=== PATIENT | female | born 1940 | race Caucasian/White ===

== ENCOUNTER 2019-03-17 04:54 | Inpatient (IN) ==
[2019-03-17] MEDS ORDERED: ZOFRAN IV ONE (05:16)
--- NOTE | 2019-03-17 05:16 | PROVIDER DOCUMENTATION ---
HPI-General Adult - General Chief Complaint: Nausea/Vomiting Stated Complaint: BACK PAIN Time Seen by Provider: 03/17/19 05:16 Source: patient, family Allergies/Adverse Reactions: Patient Allergies Allergy/AdvReac Type Severity Reaction Status Date / Time PAPER TAPE Allergy RASH Uncoded 06/13/17 03:24 Home Medications: Home Medication List Medication Instructions Recorded Confirmed Last Taken Type Cetirizine HCl 10 mg PO DAILY 06/13/17 11/24/17 11/23/17 History Hydrocortisone 2.5% Cream 30 gm TOP DAILY 06/13/17 11/24/17 11/22/17 History [Anusol-Hc Cream] Sucralfate 1 gm PO BID 06/13/17 11/24/17 11/23/17 History ATORVAstatin [Lipitor] 40 mg PO DAILY 11/24/17 11/24/17 11/23/17 History Bumetanide 2 mg PO DAILY 11/24/17 11/24/17 11/23/17 History Dicyclomine [Bentyl] 10 mg PO DAILY 11/24/17 11/24/17 11/23/17 History L.acidoph,Paracasei, B.lactis 1 each PO DAILY 11/24/17 11/24/17 11/23/17 History [Probiotic] Levothyroxine [Synthroid] 50 microgm PO DAILY 11/24/17 11/24/17 11/23/17 History Multivit with Calcium,Iron,Min 1 each PO DAILY 11/24/17 11/24/17 11/23/17 History [Multiple Vitamins For Women] Pantoprazole Sodium 20 mg PO DAILY 11/24/17 11/24/17 11/23/17 History Potassium Chloride 10 meq PO DAILY 11/24/17 11/24/17 11/23/17 History Prednisone 1 mg PO DIRECTED 11/24/17 11/24/17 11/23/17 History Ranitidine [Zantac] 150 mg PO DAILY 11/24/17 11/24/17 11/23/17 History - History of Present Illness -Gen Adult Nature of Presenting Problems: Patient is a 78 year old white female with multiple myeloma and anemia, followed by Dr. Cervantes, who presents with sudden onset of nausea,vomiting, and upper back pain since 0430 today. Denies chest pain, abdominal pain. Review of Systems - Adult - REVIEW OF SYSTEMS - ADULT Constitutional: reports: no symptoms reported, fatique. denies: chills, fever Eyes: reports: no symptoms reported Ears, Nose, Mouth & Throat: reports: no symptoms reported Cardiovascular: reports: no symptoms reported. denies: chest pain, edema, irregular heart rate Respiratory: reports: no symptoms reported Gastrointestinal: reports: no symptoms reported Genitourinary: reports: no symptoms reported Musculoskeletal: reports: no symptoms reported, other (right flank pain) Integumentary: reports: no symptoms reported Neurological: reports: no symptoms reported Psychiatric: reports: no symptoms reported Endocrine: reports: no symptoms reported Hematologic/Lymphatic: reports: no symptoms reported Allergic/Immunologic: reports: no symptoms reported All Other Systems: Reviewed and Negative Past History - Adult - PAST MEDICAL HISTORY-ADULT Review of Records: reports: Old Records Reviewed, Nursing Assessment Review, Medications Reviewed, Social history reviewed & non-contributory. Major Childhood Illnesses: reports: denies history Cardiovascular: reports: hyperlipidemia Endocrine/Immune: reports: thyroid disorder - PRIOR SURGERIES/PROCEDURES Surgical/Procedure History: reports: cholecystectomy, hysterectomy, tonsillectomy, orthopedic (extremity) (total knee replacement) - IMMUNIZATION STATUS Childhood Immunizations: See Nurse Assessment Flu Vaccine: See Nurse Assessment Physical Exam-General - PHYSICAL EXAM-ADULT Initial Vital Signs Reviewed: Yes - CONSTITUTIONAL General Appearance: alert, other (appears pale with generalized weakness) - EYES Eyes: other (clear) - HEAD, EARS, NOSE, MOUTH & THROAT HENMT: moist mucous membranes - NECK Neck: supple - RESPIRATORY Respiratory: lungs clear - CARDIOVASCULAR Cardiovascular: regular rate, rhythm - GASTROINTESTINAL (ABDOMEN) Abdominal Exam: non tender, soft, no organomegaly, no pulsatile mass. negative: rebound - LYMPHATIC Lymphatic: no adenopathy - MUSCULOSKELETAL Back Exam: no CVA tenderness, other (tender over upper back) Peripheral Pulses: radial (R): 2+, radial (L): 2+ - SKIN Integumentary: pallor - NEUROLOGIC Neurologic: other (nonfocal, uncooperative to exam) - PSYCHIATRIC Psych/Mental Status: anxious, other (cognitive dysfunction) Progress - PLAN OF CARE/RESULTS Progress/Plan/Lab Results: Vital Signs - 8 hr 03/17/19 05:00 Temperature 98.2 F Pulse Rate 77 Respiratory Rate 20 Blood Pressure 142/117 O2 Sat by Pulse Oximetry 97 Result Diagrams: 03/17/19 05:39 03/17/19 05:39 - CONSULTS/PCP/HOSPITALIST Notification #1 *Consult/PCP/Hospitalist*: DR Cheryl FLORES Time Discussed: 08:40 Consult Disposition: Admit - CHANGE OF SHIFT REPORT (ED Provider) 1 Report Given and Care Transferred to:: Dr. Gutierrez Time of Transfer: 07:00 Items Pending: Labs Departure - Departure Date of Disposition Decision: 03/17/19 Time of Disposition Decision: 09:06 DIAGNOSIS: UTI (urinary tract infection), Leukocytosis, Acute flank pain, Hx of multiple myeloma Disposition: ADMITTED INPATIENT 09 Certified Medical Emergency: Emergent Condition: Stable Referrals and Follow-Ups: Jignesh Flores MD [Primary Care Provider] - - Critical Care Note This patient required my direct & personal management of CC.: Yes Attestation - Physician/ SASHA Attestation The physician spent face to face time with patient:: Yes Advanced Practice Provider documentation review:: Supervising physician onsite and consulted in the evaluation and care of this patient. The physician did have a face to face encounter with the patient.
[2019-03-17] MEDS ORDERED: NS 500 ML IV ONE (05:17)
[2019-03-17 06:52] LABS: WBC 14.79 X1000 (4.8-10.8)
[2019-03-17 06:53] LABS: BASO% 0.1 % (0.0-0.8); EOS% 0.9 % (0.0-10.0); HEMATOCRIT 39.4 % (37.0-47.0); LYMPH# 1.93 X1000 (1.2-3.4); MCH 28.8 PG (27-31); MCV 87.4 FL (81-99); MONO# 1.11 X1000 (0.11-0.59); MONO% 7.5 % (1.7-9.3); NEUT# 11.55 X1000 (1.4-6.5); NEUT% 78.2 % (42.2-75.2); PLT 253 X1000 (130-400); RBC 4.51 XMIL (4.2-5.4); RDW 13.4 % (11.5-14.5)
[2019-03-17 06:54] LABS: BASO# 0.02 X1000 (0.0-0.2); EOS# 0.14 X1000 (0.0-0.7); IMM GRAN# 0.04 X1000 (0.0-0.04); IMM GRAN% 0.3 % (0.0-0.5)
[2019-03-17 07:05] LABS: URINE SOURCE CLEAN CATCH
[2019-03-17 07:13] LABS: URINE BACTERIA 3+ /HFP; URINE CAST NONE SEEN /LPF; URINE CRYSTAL NONE SEEN /HPF; URINE EPITHELIAL CELLS <10 /HPF (<10); URINE RBC <10 /HPF (<10); URINE SMALL ROUND CELLS RENAL PRESENT; URINE YEAST NONE SEEN /HPF
[2019-03-17 07:14] LABS: BILIRUBIN URINE NEGATIVE (NEGATIVE); BLOOD URINE NEGATIVE (NEGATIVE); CLARITY SLIGHTLY CLOUDY (CLEAR); COLOR YELLOW; GLUCOSE URINE NEGATIVE (NEGATIVE); KETONE URINE NEGATIVE (NEGATIVE); LEUKOCYTES URINE 2+ (NEGATIVE); NITRITE URINE NEGATIVE (NEGATIVE); PROTEIN URINE TRACE mg/dL (NEGATIVE); UROBILINOGEN URINE NORMAL
--- NOTE | 2019-03-17 07:50 | Diag Imaging Result Doc PS360 ---
EXAM: CHEST-PORTABLE HISTORY: upper back pain TECHNIQUE: Chest single view COMPARISON: 10/10/2011 FINDINGS: The lungs are well expanded. The heart is not enlarged. The vessels are not distended. There are no infiltrates. No effusion identified. IMPRESSION: Negative exam. Electronically signed by Madi Hood 03/17/2019 7:47 AM
--- NOTE | 2019-03-17 07:53 | Diag Imaging Result Doc PS360 ---
EXAM: THORACIC SPINE HISTORY: back pain TECHNIQUE: AP and lateral, four views COMPARISON: None. FINDINGS: No compressed vertebra. No subluxation. Small degenerative bone spurs throughout the thoracic spine. Minimal superior endplate compression fracture to the L1 vertebra. This was not present on the lateral chest x-ray from 10/10/2011. IMPRESSION: 1.Mild degenerative changes 2.Minimal superior endplate compression fracture to the L1 vertebra not present on 10/10/2011 Electronically signed by Madi Hood 03/17/2019 7:51 AM
[2019-03-17] MEDS ORDERED: ROCEPHIN 1 GM in NS 50 ML IV ONE (08:15)
[2019-03-17 08:30] LABS: AGAP 15; ALBUMIN 4.8 g/dL (3.5-5.0); ALKALINE PHOSPHATASE 89 U/L (32-104); BUN 20 mg/dL (8-22); CALCIUM 9.5 mg/dL (8.8-10.2); CHLORIDE 101 mmol/L (98-107); COSMO 281; CREATININE 0.6 mg/dL (0.5-0.9); ESTIMATED GFR > 60; GLUCOSE 118 mg/dL (70-104); GOT 71 U/L (10-30); GPT 41 U/L (10-36); POTASSIUM 4.4 mmol/L (3.5-5.1); SODIUM 139 mmol/L (136-145); TCO2 23 mmol/L (25-35); TOTAL PROTEIN 8.2 g/dL (6.3-8.3)
[2019-03-17] MEDS ORDERED: NS 1,000 ML IV ONE (10:55)
[2019-03-17] MEDS ORDERED: ZOFRAN IV PRN (10:55)
[2019-03-17] MEDS ORDERED: TORADOL IV PRN (10:55)
[2019-03-17] MEDS ORDERED: TYLENOL PO PRN (10:55)
[2019-03-17 20:22] VITALS: BP 135/79
--- NOTE | 2019-04-21 18:35 | DISCHARGE SUMMARY ---
ADMISSION DATE: 03/17/2019 DISCHARGE DATE: 03/17/2019 HISTORY OF PRESENT ILLNESS: The patient was admitted with a presumptive urinary tract infection and some right flank pain. She had history of back pain and multiple myeloma. HOSPITAL COURSE: Her vital signs were stable. Blood pressure was fine. After she settled into the floor, not really having any symptoms of a urinary tract infection. She had a chest x-ray that was unrevealing. She had a minimal superior endplate compression fracture to L1, not present previously, and may be the source of her pain. Her urine grew out Escherichia coli. She was discharged on Levaquin. Will follow her up as an outpatient. cc: Jignesh Mehta MD
--- NOTE | 2019-04-21 18:41 | HISTORY AND PHYSICAL ---
HISTORY OF PRESENT ILLNESS: She presented to the emergency room on 03/17/2019 complaining of nausea, vomiting and back pain. She is 78 years old and has a history of multiple myeloma and anemia followed by Dr. Cervantes. She presented to the emergency room with sudden onset of nausea, vomiting and upper back pain since 4:30 the day of admission in the a.m. She denies chest pain and abdominal pain. She was seen and had a chest x-ray done that was well expanded. No enlarged heart. Vessels not distended. No infiltrates. No effusions. T-spine no compressed vertebrae, no subluxation. Small degenerative bone spurs throughout the T-spine. Minimal superior endplate compression fracture to L1. This was not present on the lateral chest x-ray from 10/10/2011. Her laboratory data done in the ER showed CBC with a white count of 14,790, hematocrit 39.4, platelet count 253,000. Her chemistries showed sodium 139, potassium 4.4, chloride 101, C02 23, BUN 20, creatinine 0.6, GFR greater than 60, glucose 118, AST 71, ALT slightly elevated at 41, total bilirubin 0.80, calcium 9.5. Troponin was less than 0.01. Total protein 8.2, albumin 4.8, globulin 3, plasma lactate 1.9. Urinalysis slightly cloudy, specific gravity 1.020, 2+ white cells, urine count 10-20 white cells, less than 10 epithelial cells, 3+ bacteria cells. She was cultured both blood and urine background. She is taking Zyrtec 10 p.r.n., sucralfate 1 gram p.o. b.i.d., Lipitor 40 daily, Bumex 2 daily, Bentyl 10 daily, levothyroxine 50 mcg daily, multivitamins, Protonix 20 daily, potassium 10, prednisone 1 mg daily p.r.n. as directed and Zantac So after evaluating her x-rays and the lab, they diagnosed her with a UTI with leukocytosis, acute flank pain and history of multiple myeloma. PAST MEDICAL HISTORY: She has had hyperlipidemia, cholecystectomy, hysterectomy, tonsillectomy, several orthopedic surgeries and total knee replacement. REVIEW OF SYSTEMS: Constitutional: She does not have any chills or fever, no fatigue. Eyes: No change in visual acuity. ENT: No sinusitis, rhinitis or otitis. Cardiovascular: Denies chest pain, edema, irregular heart rate. Respiratory: No shortness of breath, HURLEY, wheezing, cough, hemoptysis. GI: No nausea, vomiting, diarrhea, constipation, belly pain, melena or hematochezia. : No significant symptoms. She has some lower back pain but no true dysuria. Musculoskeletal: She has some right flak pain. Skin: No symptoms reported. Neurological: No focal neurological deficits are identified. No migraines. No seizure activity. No syncope. Psychiatric: Negative. Endo: Negative. Denies any significant bleeding. ALLERGIES: No significant allergies. PHYSICAL EXAMINATION: VITAL SIGNS: Temperature 98.2, pulse 77, respirations 20, blood pressure 142/117. HEENT: Head is normocephalic. PERRL. EOMI. Sclerae clear. Nares patent. Oropharynx negative. NECK: Supple. Bounding carotids. No JVD. CHEST: Bilaterally clear breath sounds. HEART: Regular rhythm and rate. ABDOMEN: Nontender. No organomegaly. No pulsatile masses. EXTREMITIES: Negative for clubbing, cyanosis or edema. No CVA tenderness. She has tenderness over her upper back. Pulses intact. SKIN: She is pale. NEUROLOGICAL: Nonfocal. She is a little bit anxious otherwise negative. ASSESSMENT AND PLAN: She is admitted with a urinary tract infection, leukocytosis, flank pain and history of multiple myeloma. Her total protein is 8.2 and albumin 4.8 in reference to her issues. She is admitted, placed on antibiotics and will investigate her complaints. cc: Jignesh Mehta MD
== END 2019-03-17 23:34 | disposition home or self-care (01) | DRG 690 ==
LOC: P.ED 04:54 → P.MEDSURG 10:40
PROVIDERS: ADMIT Internal Medicine; ATTEND Internal Medicine
CPT/HCPCS: 71010; 71045; 72072; 80053; 81001; 83605; 84484; 85025; 86850; 86870; 86900; 86901; 87040; 87077; 87088; 87186; 93005; 96365; 96375; 99285; J0696; J2405; J7030

== ENCOUNTER 2019-06-24 07:41 | Inpatient (IN) ==
[2019-06-24] MEDS ORDERED: ZOFRAN IV ONE (08:14)
[2019-06-24] MEDS ORDERED: NS 1,000 ML IV ONE (08:14)
[2019-06-24 09:01] LABS: BASO# 0.01 X1000 (0.0-0.2); BASO% 0.1 % (0.0-0.8); EOS# 0.02 X1000 (0.0-0.7); EOS% 0.2 % (0.0-10.0); HEMATOCRIT 32.1 % (37.0-47.0); HEMOGLOBIN 9.5 g/dL (12.0-16.0); IMM GRAN# 0.03 X1000 (0.0-0.04); IMM GRAN% 0.3 % (0.0-0.5); LYMPH# 1.21 X1000 (1.2-3.4); LYMPH% 11.6 % (20.5-51.1); MCH 25.6 PG (27-31); MCHC 29.6 g/dL (33-37); MCV 86.5 FL (81-99); MONO# 0.96 X1000 (0.11-0.59); MONO% 9.2 % (1.7-9.3); MPV 10.1 FL (7.4-10.4); NEUT# 8.17 X1000 (1.4-6.5); NEUT% 78.6 % (42.2-75.2); PLT 516 X1000 (130-400); RBC 3.71 XMIL (4.2-5.4); RDW 15.4 % (11.5-14.5)
[2019-06-24 09:13] LABS: CALCIUM 10.5 mg/dL (8.8-10.2); CREATININE 1.2 mg/dL (0.5-0.9); MAGNESIUM 2.5 mg/dL (1.5-2.7); POTASSIUM 3.6 mmol/L (3.5-5.1); TOTAL BILIRUBIN 0.7 mg/dL (0.20-1.00); TOTAL PROTEIN 8.9 g/dL (6.3-8.3)
--- NOTE | 2019-06-24 10:54 | Diag Imaging Result Doc PS360 ---
EXAM: CT ABD/PELVIS W/IV CONT ONLY - 06/24/2019 HISTORY: epigastric pain with NV. TECHNIQUE: CT abdomen/pelvis with intravenous contrast only. No oral contrast administered per request of the referring provider. COMPARISON: 03/18/2018 FINDINGS: There is an apparent 1.8 cm new solid nodule at the medial margin of the right lobe of liver. The adrenal gland. There are scattered small hepatic cysts. There are two new solid nodular lesions in the spleen which measure 4.2 cm and 4 cm, respectively. The possibility that the solid hepatic and splenic nodules representing metastases cannot be excluded. There are no other acute abnormalities of the adrenal glands or pancreas identified. The gallbladder surgically absent. The bilateral kidneys enhance homogeneously. There is no hydronephrosis. There is dilatation of proximal small bowel and stomach with retained fluid. The more distal small bowel is nondistended. This is suspicious for small bowel obstruction. There is small bowel caliber change at the lower abdomen at the midline, with air appears to be an intussusception. There is a possible smooth margined mass lesion at this location which involves the small bowel, but this is difficult to distinguish from retained contents in small bowel lumen. This measures approximately 4.4 x 4.5 cm in axial dimensions. There is a small fat-containing midline upper anterior abdominal wall hernia. There is no free air, free fluid, or abscess identified. IMPRESSION: Small solid hepatic nodule and two larger solid splenic nodules. Metastases cannot be excluded. Small bowel obstruction from intussusception at the midline lower abdomen. Possible smooth margined soft tissue mass at the intussusception location. This report was discussed with Dr. Santillan on 06/24/2019 at 10:52 AM and was readback. This exam was performed using automated exposure control, adjustment of mA or kV according to patient size, and/or use of iterative reconstruction technique. Electronically signed by Omid Orta 06/24/2019 10:52 AM
[2019-06-24] MEDS: NS 1,000 ML IV SCH ×2 (11:32→23:16)
--- NOTE | 2019-06-24 13:14 | PROVIDER DOCUMENTATION ---
This chart was entered by Megan Murphy Scribe, acting as scribe for Nuzhat Santillan DO. HPI-Abdominal Pain/GI Problem - General Chief Complaint: Vomiting Stated Complaint: vomiting Time Seen by Provider: 06/24/19 07:58 Source: patient, family Allergies/Adverse Reactions: Patient Allergies Allergy/AdvReac Type Severity Reaction Status Date / Time PAPER TAPE Allergy RASH Uncoded 06/13/17 03:24 - History of Present Illness-ABD Nature of Presenting Problems: 78 yof presents to [facility] ed with c/o n/v with abdominal pain. pt sts was seen last night in ed and felt better when she left to go home. pt sts pain and n/v returned early this am. pt is current cancer (multiple myeloma) and is undergoing through chemo injections regularly. Abdominal Pain Onset Location: reports: generalized abdomen Pain Radiation: reports: no radiation Quality of Pain: reports: cramping Severity in ED: reports: moderate Onset/Duration: reports: this morning Timing: reports: still present, intermittent Activities at Onset: reports: light activity Exposure to sick contacts?: Yes Modifying Factors: improves with: nothing Associated Symptoms: reports: fatigue, nausea, vomiting. denies: back/neck pain, chest pain, diaphoresis, fever/chills, headaches Last BM: 2 days ago Dark Stools Present?: reports: none noticed Rectal Bleeding: reports: none # of Diarrhea Episodes: 0 Rectal Pain: reports: none # of Vomiting Episodes: 4 Emesis Description: reports: other (anything PO) Bruising or Bleeding Gums?: No Similar Symptoms Previously?: Yes Recently seen or treated by another doctor?: Yes (seen in ed last night) Review of Systems - Adult - REVIEW OF SYSTEMS - ADULT Constitutional: reports: see HPI, fatique. denies: chills, fever Eyes: reports: no symptoms reported Ears, Nose, Mouth & Throat: reports: no symptoms reported Cardiovascular: denies: chest pain, palpitations, syncope Respiratory: denies: cough, shortness of breath, wheezing Gastrointestinal: reports: see HPI, abdominal pain, nausea, poor appetite, vomiting. denies: diarrhea Genitourinary: reports: no symptoms reported Musculoskeletal: denies: back pain, neck pain Integumentary: reports: no symptoms reported Neurological: denies: dizziness/vertigo, headache/migraines Psychiatric: reports: no symptoms reported Endocrine: reports: no symptoms reported Hematologic/Lymphatic: reports: no symptoms reported Allergic/Immunologic: reports: no symptoms reported All Other Systems: Reviewed and Negative Past History - Adult - PAST MEDICAL HISTORY-ADULT Review of Records: reports: Old Records Reviewed, Nursing Assessment Review, Medications Reviewed, Social history reviewed & non-contributory. Major Childhood Illnesses: reports: denies history Cardiovascular: reports: hyperlipidemia Respiratory: reports: denies history Gastrointestinal: reports: GERD Obstetrical/Gynecological: reports: denies history Genitourinary: reports: denies history Musculoskeletal: reports: cancer (bone), chronic pain Hand Dominance: Right Handed Neurological: reports: denies history Psychiatric: reports: denies history Endocrine/Immune: reports: immunosuppression, thyroid disorder Other Conditions: reports: cataract/glaucoma - PRIOR SURGERIES/PROCEDURES Surgical/Procedure History: reports: appendectomy, cholecystectomy, hysterectomy , tonsillectomy, orthopedic (extremity) (total knee replacement), joint replacement - IMMUNIZATION STATUS Childhood Immunizations: See Nurse Assessment Flu Vaccine: See Nurse Assessment - FAMILY HISTORY Family History: reviewed, not pertinent - SOCIAL HISTORY Smoking: denies Substance Use: denies Alcohol Use Frequency: never Living Situation: family Physical Exam-General - PHYSICAL EXAM-ADULT Initial Vital Signs Reviewed: Yes - CONSTITUTIONAL General Appearance: appears well, alert, no apparent distress, obese - EYES Eyes: PERRL/EOMI, pink conjunctivae - HEAD, EARS, NOSE, MOUTH & THROAT HENMT: moist mucous membranes - NECK Neck: non-tender, full range of motion, supple, normal inspection - RESPIRATORY Respiratory: chest non-tender, lungs clear, normal breath sounds - CARDIOVASCULAR Cardiovascular: normal peripheral pulses, tachycardia (112) - GASTROINTESTINAL (ABDOMEN) Abdominal Exam: abnormal bowel sounds (hyperactive), distended, tenderness (epigastrium.). negative: rebound - LYMPHATIC Lymphatic: no adenopathy - MUSCULOSKELETAL Back Exam: normal inspection Extremity: normal range of motion, non-tender, normal inspection, normal capillary refill, pelvis stable - SKIN Integumentary: normal turgor, warm/dry, pallor - NEUROLOGIC Neurologic: grossly normal - PSYCHIATRIC Psych/Mental Status: normal mood/affect, normal thought content, normal thought process, oriented x 3 Progress - PLAN OF CARE/RESULTS Progress/Plan/Lab Results: Vital Signs - 8 hr 06/24/19 07:47 06/24/19 08:09 Temperature 98 F Pulse Rate 112 H 101 H Respiratory Rate 18 13 Blood Pressure 95/58 110/70 O2 Sat by Pulse Oximetry 98 96 Laboratory Results - last 24 hr 06/24/19 06/24/19 08:24 08:24 WBC 10.40 RBC 3.71 L Hgb 9.5 L Hct 32.1 L MCV 86.5 MCH 25.6 L MCHC 29.6 L RDW Std Deviation 15.4 H Plt Count 516 H MPV 10.1 Immature Gran % (Auto) 0.3 Neut % (Auto) 78.6 H Lymph % (Auto) 11.6 L Coal % (Auto) 9.2 Eos % (Auto) 0.2 Baso % (Auto) 0.1 Immature Gran # (Auto) 0.03 Neut # (Auto) 8.17 H Lymph # (Auto) 1.21 Coal # (Auto) 0.96 H Eos # (Auto) 0.02 Baso # (Auto) 0.01 Sodium 141 Potassium 3.6 Chloride 91 L Carbon Dioxide 31 Anion Gap 19 BUN 19 D Creatinine 1.2 H Estimated GFR/1.73 m2 43 BUN/Creatinine Ratio 16 Glucose 133 H Calculated Osmolality 285 Calcium 10.5 H Magnesium 2.5 Total Bilirubin 0.70 AST 21 ALT 17 Alkaline Phosphatase 96 Total Protein 8.9 H Albumin 5.0 Globulin 4.0 Albumin/Globulin Ratio 1.0 Lipase 29 Orders Category Date Time Status NG/OG/Feeding Tube Insertion ORDERED Care 06/24/19 11:[address] ABD/PELVIS W/IV CONT ONLY [CT] Stat Exams 06/24/19 10:10 Completed CBC WITH ELECTRONIC DIFF [HEME] Stat Lab 06/24/19 08:24 Completed COMPREHENSIVE METABOLIC PANEL [CHEM] Stat Lab 06/24/19 08:24 Completed LIPASE [CHEM] Stat Lab 06/24/19 08:24 Completed MAGNESIUM [CHEM] Stat Lab 06/24/19 08:24 Completed 0.9% Sodium Chloride Inj [Ns] 1,000 ml Med 06/24/19 11:15 Active IV 100 mls/hr 0.9% Sodium Chloride Inj [Ns] 1,000 ml Med 06/24/19 08:14 Discontinued IV 999 mls/hr Ondansetron [Zofran] Med 06/24/19 08:14 Discontinued 4 mg IV NOW ONE Clinically stable under my care. Considerations include but not limited to: SBO, intussusception, CA recurrence. She was found to have intussusception on CT. Case discussed with Dr Villegas who plans operative intervention. She was transferred to via ambulance and admitted to the hospitalist service. NG placed in the ED. Result Diagrams: 06/25/19 06:22 06/25/19 06:22 - REASSESSMENT Reassessment #1 Time Reassessed: 09:05 (family at bedside) Status: unchanged Reassessment #2 Time Reassessed: 11:36 (pt is resting in bed in no distress) Status: unchanged - CT/MRI 1 CT Study: Abdomen, Pelvis Impression: See EMR Report (EXAM: CT ABD/PELVIS W/IV CONT ONLY - 06/24/2019 HISTORY: epigastric pain with NV. TECHNIQUE: CT abdomen/pelvis with intravenous contrast only. No oral contrast administered per request of the referring provider. COMPARISON: 03/18/2018 FINDINGS: There is an apparent 1.8 cm new solid nodule at the medial margin of the right lobe of liver. The adrenal gland. There are scattered small hepatic cysts. There are two new solid nodular lesions in the spleen which measure 4.2 cm and 4 cm, respectively. The possibility that the solid hepatic and splenic nodules representing metastases cannot be excluded. There are no other acute abnormalities of the adrenal glands or pancreas identified. The gallbladder surgically absent. The bilateral kidneys enhance homogeneously. There is no hydronephrosis. There is dilatation of proximal small bowel and stomach with retained fluid. The more distal small bowel is nondistended. This is suspicious for small bowel obstruction. There is small bowel caliber change at the lower abdomen at the midline, with air appears to be an intussusception. There is a possible smooth margined mass lesion at this location which involves the small bowel, but this is difficult to distinguish from retained contents in small bowel lumen. This measures approximately 4.4 x 4.5 cm in axial dimensions. There is a small fat- containing midline upper anterior abdominal wall hernia. There is no free air, free fluid, or abscess identified. IMPRESSION: Small solid hepatic nodule and two larger solid splenic nodules. Metastases cannot be excluded. Small bowel obstruction from intussusception at the midline lower abdomen. Possible smooth margined soft tissue mass at the intussusception location. This report was discussed with Dr. Santillan on 06/24/2019 at 10:52 AM and was readback. This exam was performed using automated exposure control, adjustment of mA or kV according to patient size, and/or use of iterative reconstruction technique. Electronically signed by Omid Orta 06/24/2019 10:52 AM 06/24/19 1052 Interpreting Physician: Omid Orta MD Dictated Date/Time: 06/24/19 1034 cc: Nuzhat Santillan DO; Jignesh Mehta MD) - CONSULTS/PCP/HOSPITALIST Notification #1 *Consult/PCP/Hospitalist*: sx dr villegas Reason/Comments: phone consult #2 Consult: hospitalist dr guillen Reason/Comments: phone consult Departure - Departure Date of Disposition Decision: 06/24/19 Time of Disposition Decision: 11:30 DIAGNOSIS: Intussusception intestine Disposition: ADMITTED INPATIENT 09 Certified Medical Emergency: Emergent Condition: Fair - Critical Care Note This patient required my direct & personal management of CC.: Yes Total Time (mins): 42 Critical Care Statement: This patient required my direct personal management to treat or rule out processes, the absence of which, could potentiallly result in sudden, clinically significant life or limb threatening deterioration. Attestation - Physician/ SASHA Attestation Patient care was provided by Advanced Practice Provider:: No The physician spent face to face time with patient:: Yes Advanced Practice Provider documentation review:: Supervising physician onsite and consulted in the evaluation and care of this patient. The physician did have a face to face encounter with the patient. This chart was documented by the indicated scribe, (Megan Murphy Scribe) and accurately reflects the services I performed and decisions made by me, Nuzhat Santillan DO, as attested by the provider's signature.
[2019-06-24] MEDS ORDERED: KEFZOL 2 GM/D5W 2 GM/50 ML IVPB IV ONE (14:27)
--- NOTE | 2019-06-24 14:28 | GENERAL SURGERY CONSULTATION ---
DATE: 06/24/2019 REASON FOR CONSULTATION: Intussusception. HISTORY OF PRESENT ILLNESS: This is an 78-year-old female, who has been having some epigastric pain for about 2 weeks. It is mostly constant. It has been relieved mildly with eating. However, yesterday she developed new intractable nausea and vomiting and her epigastric pain became worse. Currently, however, it is only a 3/10. It is 10/10 at its worst, and it is not worse with movement. There are no relieving factors. Her last bowel movement was 2 days ago. She denies fever, chills, or other systemic complaints. PAST MEDICAL HISTORY: IBS, multiple myeloma. PAST SURGICAL HISTORY: Bladder tack, laparoscopic cholecystectomy, total abdominal hysterectomy, knee replacement. HOME MEDICATIONS: Synthroid, gabapentin, furosemide, pantoprazole, multivitamin, valacyclovir, probiotic, Klor-Con, ranitidine, cetirizine, atorvastatin, MiraLAX. ALLERGIES: Aspirin and codeine. The codeine in pain medicine makes her have nausea and vomiting. However, she can tolerate morphine. SOCIAL HISTORY: Negative tobacco, alcohol or illicit drug use. FAMILY HISTORY: Positive for scleroderma and Raynaud syndrome. REVIEW OF SYSTEMS: Ten systems reviewed and negative, except as noted above. PHYSICAL EXAM: Vital Signs: She is afebrile. Vital signs are stable. General: She is awake, alert, oriented x3, in no acute distress. HEENT: Normocephalic, atraumatic. Extraocular muscles intact. Pupils equal, round, reactive to light. Sclerae anicteric. Mucous membranes are dry. The NG tube is in place with gastric contents. Neck: Supple. No thyromegaly. CV: Regular rate and rhythm. Respiratory: Bilateral breath sounds. No work of breathing. Gastrointestinal: Soft, nondistended no organomegaly or mass. She is moderately tender in the upper abdomen. No rebound or guarding. No hernias. Extremities: No clubbing, cyanosis or edema. Skin: Warm and dry. No rash. Musculoskeletal: Moves all extremities equally and well. LABORATORY: Reviewed. She does have a leukocytosis. IMAGING: CT of abdomen and pelvis was reviewed and shows small bowel obstruction with intussusception. ASSESSMENT AND PLAN: An 78-year-old female with small bowel obstruction due to intussusception. She will be getting fluids, and we will plan exploratory laparotomy today with possible bowel resection versus reduction of the intussusception. I discussed the risks and benefits with her, including bleeding, infection, incisional hernia, anastomotic leak, injury to surrounding organs, perioperative cardiopulmonary complications and other imponderables. She understands and agrees to proceed. cc: Karl Villegas MD
[2019-06-24] MEDS ORDERED: ALBUMIN 25% ONE (14:30)
[2019-06-24] MEDS ORDERED: ROBINUL ONE (14:41)
[2019-06-24] MEDS ORDERED: AMIDATE ONE (14:41)
[2019-06-24] MEDS ORDERED: XYLOCAINE-MPF 2% ONE (14:41)
[2019-06-24] MEDS ORDERED: QUELICIN (DOSE) ONE (14:46)
--- NOTE | 2019-06-24 15:06 | EKG Report ---
Test Performed on : 06/24/2019 3:00:50 PM Test Reason : preop Blood Pressure : / mmHG Vent. Rate : 095 BPM Atrial Rate : 095 BPM P-R Int : 154 ms QRS Dur : 090 ms QT Int : 388 ms P-R-T Axes : 050 -11 083 degrees QTc Int : 487 ms Normal sinus rhythm. Cannot rule out Anterior infarct , age undetermined Abnormal ECG When compared with ECG of 23-JUN-2019 19:45, (Unconfirmed) Nonspecific T wave abnormality, worse in Lateral leads Confirmed by Steve Healy MD ([id number]) on 06/25/2019 7:00:22 AM
[2019-06-24] MEDS ORDERED: KEFZOL 2 GM/D5W 2 GM/50 ML IVPB ONE (15:59)
[2019-06-24] MEDS ORDERED: KETAMINE ONE (16:01)
[2019-06-24] MEDS ORDERED: OFIRMEV 1000 MG/ISOTONIC SOLN 1,000 MG/100 ML BOTTLE ONE (16:18)
[2019-06-24] MEDS ORDERED: BRIDION ONE (16:24)
[2019-06-24] MEDS ORDERED: ZOFRAN ONE (16:34)
[2019-06-24] MEDS ORDERED: ZEMURON ONE (16:37)
[2019-06-24] MEDS ORDERED: DILAUDID ONE (16:53)
[2019-06-24] MEDS ORDERED: NS 1,000 ML ONE (18:02)
[2019-06-24 18:03] LABS: URINE SOURCE CATH
[2019-06-24 18:07] LABS: BILIRUBIN URINE NEGATIVE (NEGATIVE); BLOOD URINE NEGATIVE (NEGATIVE); COLOR YELLOW; GLUCOSE URINE NEGATIVE (NEGATIVE); KETONE URINE NEGATIVE (NEGATIVE); LEUKOCYTES URINE MODERATE (NEGATIVE); NITRITE URINE POSITIVE (NEGATIVE); PH URINE 8.5; PROTEIN URINE 100 mg/dL (NEGATIVE); SP GRAVITY URINE 1.024; TURBIDITY URINE HAZY (CLEAR); UROBILINOGEN URINE NORMAL (NORMAL)
[2019-06-24 18:09] LABS: UR EPITHELIAL CELLS <10 /HPF (<10); URINE BACTERIA 2+ /HPF; URINE RBC <10 /HPF (<10); URINE WBC TNTC /HPF (<10)
--- NOTE | 2019-06-24 20:44 | HISTORY AND PHYSICAL ---
ADDENDUM: The patient was seen and examined by me [id number]. All the laboratory, vital signs, and images were reviewed. This patient is an 78-year-old female, and she has a past medical history of multiple myeloma, hyperlipidemia, cholecystectomy, several orthopedic surgeries. She has been followed up by Dr. Cervantes. Apparently as per the patient, she has been having abdominal pain for a few days, but yesterday this pain got worse, and she actually went to the emergency department. She was discharged after evaluation because the pain got better. She came back today with worsening pain, and CT scan of the abdomen showed a small solid hepatic nodule and 2 large solid splenic nodules. Metastases cannot be excluded. Also showed small bowel obstruction from intussusception at the midline lower abdomen. There is a possibility of smooth margined soft tissue mass at the intussusception location. An NG tube has been placed, and Surgery Department evaluated this patient. Hopefully, they will go for surgery today to repair this issue. She has been placed on IV fluids. This patient seems to be a little bit dehydrated, and she is having also acute kidney injury. We will monitor this patient closely. I agree with the rest of the nurse practitioner's assessment and plan. cc: Wily Granados MD
[2019-06-24] MEDS: OFIRMEV 1000 MG/ISOTONIC SOLN 1,000 MG/100 ML BOTTLE IV SCH (23:15)
[2019-06-24] MEDS: PERIDEX MT SCH (23:16)
--- NOTE | 2019-06-25 00:16 | OPERATIVE NOTE ---
PROCEDURE DATE: 06/24/2019 PREOPERATIVE DIAGNOSIS: Intussusception and small-bowel obstruction. POSTOPERATIVE DIAGNOSIS: Intussusception and small-bowel obstruction. PROCEDURE: Exploratory laparotomy with small-bowel resection. SURGEON: Karl Villegas MD. ANESTHESIA: General. ESTIMATED BLOOD LOSS: 50 mL. COMPLICATIONS: None apparent. SPECIMENS: Portion of small bowel. FINDINGS: She had an intussusception due to a tumor as the pathologic lead point. This was in the proximal small bowel approximately 20 to 30 cm from the ligament of Treitz. There were a few enlarged lymph nodes in the mesentery underneath this tumor. TECHNIQUE: She was brought to the operating room and placed supine on the table. General anesthesia was induced. She was prepped and draped in usual sterile fashion. A periumbilical midline incision was made with a 10 blade, and carried down through the subcutaneous tissue with cautery down to the fascia. The fascia was incised with cautery. The peritoneum was grasped between hemostats and incised with scissors, and I entered the peritoneal cavity safely. I lengthened the peritoneal and fascial incision with cautery, being careful to protect the underlying bowel. There were a few adhesions of omentum to the anterior abdominal wall. These were taken down with cautery. I then found the cecum and terminal ileum, and began running it from distal to proximal into the proximal small-bowel. I found the intussusception. I was able to reduce it easily by milking it out, and it revealed a walnut sized near obstructing mass that was almost certainly malignant. I created a window on either side of this mass through the mesentery, at least 5 cm proximal and distal, and then transected the small-bowel with a linear NATHAN stapler proximally and distally. I then used a V-shaped wedge resection of the underlying mesentery, taking multiple lymph nodes with it. This was done with cautery, clamping the vessels, and ligating the vessels with 3-0 or 2-0 silk. Once the specimen was removed and the mesentery was divided, I then placed a Carmalt clamp on the proximal obstructed bowel. I incised the corners of the proximal and distal ends, lining them up in a [id number] fashion, and passed another linear stapler down each limb of the bowel, creating a [id number] antimesenteric anastomosis. This was in an antiperistaltic fashion. I closed the common enterotomy with a running 2-0 Vicryl in 2 directions. I closed the mesenteric defect with interrupted 3-0 silk. The anastomosis was patent and felt to have good blood supply. The bowel was dropped back into the abdominal cavity. I did run the small-bowel all the way from the ligament of Treitz to the terminal ileum. There were no other pathologic lesions. The omentum appeared normal. The transverse colon appeared normal. I brought the omentum back down over the small-bowel. I felt the NG tube, it was in good position along the greater curve of the stomach. I then closed the fascia with a running #1 looped Maxon suture and closed the skin with skin clips. She was awakened in stable condition and transferred to the recovery room. There were no apparent complications. cc: Karl Villegas MD
--- NOTE | 2019-06-25 00:21 | HISTORY AND PHYSICAL ---
CHIEF COMPLAINT: Abdominal pain, vomiting. HISTORY OF PRESENT ILLNESS: Patient is an 78-year-old female who has a known history of bone cancer. She presented to the hospital with abdominal pain, nausea, vomiting. Was actually seen in the ER last night and felt as though she was feeling better. She asked to go home. Unfortunately, that did not improve. She came back today with nausea, vomiting. She was noted to have an obstruction with intussusception at the lower abdomen per CT. CT also demonstrated a small solid hepatic nodule and 2 larger splenic nodules which were felt to be metastases. ALLERGIES: Paper tape. MEDICATIONS: Lipitor 40, probiotics, Synthroid, pantoprazole, Lasix, gabapentin, valacyclovir. REVIEW OF SYSTEMS: Positive nausea, vomiting. Denies any fevers or chills. Denies headaches or blurred vision but notes she has not been feeling well. She has had increased vomiting, very poor appetite. Denies hematochezia, melena, hematemesis. Notes that her symptoms are moderate to severe and continue to worsen. Nothing has been making them any better. Denies any dysuria, urinary frequency, urgency, hesitancy, constipation. PAST MEDICAL HISTORY: Hyperlipidemia, reflux, bone cancer, chronic pain, immunosuppression, hypothyroidism, history of glaucoma. She has had an appendectomy, cholecystectomy, hysterectomy, tonsillectomy. Has had a total knee replacement. FAMILY HISTORY: Noncontributory. SOCIAL HISTORY: Does not smoke, drink or use illicit substances. PHYSICAL EXAMINATION: VITAL SIGNS: Reviewed. Temperature 98 degrees, pulse 112, respiratory rate 18, BP 95/58. 98% on room air. GENERAL: Patient is awake, alert. She is in no respiratory distress but is somewhat ill- appearing. HEENT: Normocephalic. NECK: Supple. CARDIOVASCULAR: Regular rate. No murmurs. CHEST: Clear. ABDOMEN: Soft. Hyperactive bowel sounds. Diffusely tender. EXTREMITIES: Moves all extremities. No edema. NEUROLOGIC: No focal changes. She is awake, alert, oriented. LABORATORIES: WBCs 10, hemoglobin and hematocrit 9 and 32. Glucose 133. ASSESSMENT: 1. Small bowel obstruction with intussusception. 2. Bone cancer with likely metastasis. 3. Chronic pain. 4. Nausea, vomiting. 5. Hypothyroidism. 6. High cholesterol. 7. Others. PLAN: We are going to admit the patient hospital, transfer her to [facility] for surgical intervention. Place her home IV fluids, pain control and we will follow. cc: Nate Galo MD [facility]
[2019-06-25] MEDS: FLAGYL 500 MG/NS 500 MG/100 ML IVPB IV SCH ×2 (00:40→06:15)
[2019-06-25] MEDS: KEFZOL 1 GM/D5W 1 GM/50 ML IVPB IV SCH ×2 (01:34→09:00)
[2019-06-25] MEDS: DILAUDID IV PRN ×4 (02:22→22:04)
[2019-06-25] MEDS: ZOFRAN IV PRN ×3 (02:23→16:33)
[2019-06-25] MEDS: NS 1,000 ML IV SCH ×2 (06:02→09:00)
[2019-06-25] MEDS: OFIRMEV 1000 MG/ISOTONIC SOLN 1,000 MG/100 ML BOTTLE IV SCH ×3 (06:15→16:33)
[2019-06-25 07:16] LABS: HEMATOCRIT 27.6 % (37.0-47.0); HEMOGLOBIN 8.6 g/dL (12.0-16.0); MCH 28.2 PG (27-31); MCHC 31.2 g/dL (33-37); MCV 90.5 FL (81-99); MPV 9.8 FL (7.4-10.4); RBC 3.05 XMIL (4.2-5.4); RDW 15.8 % (11.5-14.5)
[2019-06-25 08:18] LABS: AGAP 14; ALB/GLOB RATIO 1.5; ALBUMIN 3.3 g/dL (3.5-5.0); ALKALINE PHOSPHATASE 64 U/L (32-104); BUN 17 mg/dL (8-22); CALCIUM 7.4 mg/dL (8.8-10.2); CHLORIDE 101 mmol/L (98-107); COSMO 284; CREATININE 0.7 mg/dL (0.5-0.9); ESTIMATED GFR > 60; GLUCOSE 120 mg/dL (70-104); GOT 16 U/L (10-30); GPT 9 U/L (10-36); MAGNESIUM 2.3 mg/dL (1.5-2.7); POTASSIUM 3.5 mmol/L (3.5-5.1); SODIUM 141 mmol/L (136-145); TCO2 26 mmol/L (25-35); TOTAL BILIRUBIN 0.47 mg/dL (0.20-1.00); TOTAL PROTEIN 5.5 g/dL (6.3-8.3)
[2019-06-25] MEDS: LOVENOX SUBQ SCH (09:14)
[2019-06-25 11:06] LABS: RETIC% 3.27 % (0.8-2.1); RETIC-HE 23.1 PG (28.2-36.6)
[2019-06-25] MEDS: PERIDEX MT SCH ×2 (11:15→22:07)
[2019-06-25 11:21] LABS: IRON SATURATION 6 %; TIBC 193 ug/dL; TOTAL IRON 11 ug/dL (49-151); UNBOUND IRON 182 ug/dL (112-346)
[2019-06-25 11:36] LABS: FERRITIN 835 ng/mL (13-150)
--- NOTE | 2019-06-25 12:28 | PROGRESS NOTE ---
DATE: 06/25/2019 SUBJECTIVE: The patient seems to be doing better today. She is status post exploratory laparotomy with small-bowel resection due to intussusception and small bowel obstruction, during the procedure, a walnut-sized near-obstructing mass was identified and as per the note was almost certainly malignant, that has been resected. OBJECTIVE: Vital Signs: Temperature 98.3 degrees, pulse 94, respiratory rate 16, blood pressure 116/50, oxygen saturation 96% on 2 L of nasal cannula. HEENT: Head normocephalic, no trauma, PERRLA. Neck: Supple. No JVD. No masses. Central trachea. Chest: Clear to auscultation. No wheezing. Some crepitus at the bases. Abdomen: Soft, decreased bowel sounds. She has a midline incision. I do not see any bleeding or infection at this moment. It is slightly distended. Extremities: Edema. No clubbing. No cyanosis. Neurological: The patient is completely alert. She is oriented x3. No focal deficits. LABORATORY: WBC 12, hemoglobin 8.6, hematocrit 27.6, platelet 385,000, sodium 141, potassium 3.5, chloride 101, bicarbonate 26, BUN 17, creatinine 0.7, glucose 120, calcium 7.4, AST 16, ALT 9, alkaline phosphatase 64, albumin 3.3. ASSESSMENT AND PLAN: 1. Small-bowel obstruction with intussusception, status post exploratory laparotomy with small- bowel resection, a walnut sized near-obstructing mass was found and this is probably malignant, it has been resected, surgery department on board. We will continue to monitor. She has an NG tube in place and IV fluids. 2. Acute kidney injury, resolved. Continue with IV fluids. 3. Hypothyroidism. I have placed this patient on IV levothyroxine in the meantime. 4. History of gastroesophageal reflux disease. Continue with famotidine IV. 5. History of multiple myeloma and now a possible malignant mass in the small bowel, hematology oncology has been consulted. We will follow their recommendations. 6. Nausea and vomiting, likely due to bowel obstruction. 7. Dyslipidemia, will continue with statins once this patient is tolerating p.o. cc: Wily Granados MD
[2019-06-25] MEDS: PEPCID IV SCH (12:34)
--- NOTE | 2019-06-25 16:42 | GENERAL SURGERY PROGRESS NOTE ---
DATE: 06/25/2019 SUBJECTIVE: The patient reports to feeling better this morning. She is sore. Some nausea. No vomiting. OBJECTIVE: Vitals: She is afebrile. Pulse is in the 80s to 90s, blood pressure 116/50, O2 saturation 96%. NG tube output 575 mL. General: She is awake and alert. No acute distress. CV: Regular rate and rhythm. Respiratory: Bilateral breath sounds. No increased work of breathing. GI: Soft, appropriately tender. Mildly distended. Hypoactive bowel sounds. LABORATORY: White blood cell count 12, hemoglobin 8.6, hematocrit 27.6, platelet count 385,000. Electrolytes reviewed and unremarkable. ASSESSMENT AND PLAN: An 78-year-old female postoperative day 1 small bowel resection for obstructing tumor and intussusception. She is stable. We will continue the NG tube through tonight and assess for return of bowel function over the weekend. I encouraged her to be out of bed, and we are awaiting her pathology report. cc: Karl Villegas MD
[2019-06-26] MEDS: PEPCID IV SCH ×3 (01:09→23:21)
[2019-06-26] MEDS: SYNTHROID IV SCH (06:34)
[2019-06-26] MEDS: SODIUM CHLORIDE 0.9% INJ PRN (06:35)
--- NOTE | 2019-06-26 07:34 | Diag Imaging Result Doc PS360 ---
CHEST-PORTABLE - 06/26/2019 INDICATION: dyspnea COMPARISON: 03/17/2019 FINDINGS: There is a nasogastric tube in good position in the stomach. Lung volumes are severely low. There are small patchy areas of atelectasis or infiltrate in the lung bases bilaterally. Heart size is top normal. IMPRESSION: Nonspecific findings. Electronically signed by Ben Jenkins 06/26/2019 7:32 AM
[2019-06-26 07:59] LABS: BASO# 0.01 X1000 (0.0-0.2); BASO% 0.1 % (0.0-0.8); EOS# 0.18 X1000 (0.0-0.7); EOS% 1.4 % (0.0-10.0); HEMATOCRIT 26.8 % (37.0-47.0); HEMOGLOBIN 7.5 g/dL (12.0-16.0); IMM GRAN# 0.03 X1000 (0.0-0.04); IMM GRAN% 0.2 % (0.0-0.5); LYMPH# 1.03 X1000 (1.2-3.4); LYMPH% 8.2 % (20.5-51.1); MCH 25.5 PG (27-31); MCV 91.2 FL (81-99); MONO# 0.81 X1000 (0.11-0.59); MONO% 6.4 % (1.7-9.3); MPV 9.7 FL (7.4-10.4); NEUT% 83.7 % (42.2-75.2); PLT 419 X1000 (130-400); RBC 2.94 XMIL (4.2-5.4); RDW 15.5 % (11.5-14.5); WBC 12.56 X1000 (4.8-10.8)
[2019-06-26 08:01] LABS: AGAP 14; BUN 13 mg/dL (8-22); CALCIUM 7.4 mg/dL (8.8-10.2); CHLORIDE 104 mmol/L (98-107); COSMO 283; CREATININE 0.5 mg/dL (0.5-0.9); ESTIMATED GFR > 60; GLUCOSE 97 mg/dL (70-104); POTASSIUM 3.3 mmol/L (3.5-5.1); SODIUM 142 mmol/L (136-145); TCO2 24 mmol/L (25-35)
[2019-06-26] MEDS: PERIDEX MT SCH ×2 (08:31→21:40)
[2019-06-26] MEDS: DILAUDID IV PRN ×2 (08:31→23:21)
[2019-06-26] MEDS: NS 1,000 ML IV SCH (08:31)
[2019-06-26] MEDS: LOVENOX SUBQ SCH (08:32)
[2019-06-26] MEDS ORDERED: POTASSIUM CHLORIDE 20 MEQ in NS 1,000 ML IV SCH (10:17)
[2019-06-26] MEDS: ZOFRAN IV PRN (10:28)
--- NOTE | 2019-06-26 12:35 | HEMO/ONC CONSULTATION ---
DATE: 06/26/2019 REASON FOR CONSULTATION: A known patient of ours for treatment of multiple myeloma. HISTORY OF PRESENT ILLNESS: This is an 78-year-old female who is known to us in the clinic for the treatment of multiple myeloma and iron deficiency anemia. She presented to the ER on Friday and nights with complaints of abdominal pain and intractable nausea and vomiting. CT scan of her abdomen showed an obstruction as well as intussusception. Surgery was called to evaluate. The patient was subsequently admitted and went to the OR for resolution of bowel obstruction and intussusception. Small-bowel resection was successful and patient is recovering. We treat the patient for IgA lambda multiple myeloma diagnosed in November 2017. She is on maintenance Velcade 3 weeks on and 1 week off. She recently had an episode of GI bleeding. She saw Dr. Tai for an EGD and colonoscopy. She was noted to have ulcer disease and gastric erosion. Shortly after that, she was diagnosed with iron deficiency anemia. She had 1 dose of IV iron June 16 due to intolerance of oral iron. PAST MEDICAL HISTORY: Includes hyperlipidemia, GERD, multiple myeloma, chronic pain, immunosuppression, hypothyroidism, history of glaucoma. SURGICAL HISTORY: Appendectomy, cholecystectomy, hysterectomy, tonsillectomy, prolapsed bladder repair, and a total knee replacement. SOCIAL HISTORY: The patient does not smoke, drink, or use illicit drugs. HOME MEDICATIONS: Lipitor, probiotics, Synthroid, pantoprazole, Lasix, gabapentin and valacyclovir. ALLERGIES: Paper tape. REVIEW OF SYSTEMS: Pertinent positives are mentioned in the HPI. PHYSICAL EXAMINATION: Vital Signs: Temperature 98.4 degrees, pulse rate 99, respiratory rate 16, blood pressure 123/52, O2 saturation 95% on nasal cannula at 2 L. She is in 9/10 back and abdominal pain. General: Patient is in no acute distress. However, she is ill-appearing and pale. HEENT: Sclerae is anicteric. PERRLA. Oral mucosa is dry. Cardiovascular: Normal S1, S2. Regular heart rate and rhythm. Respiratory: Chest is clear to auscultation. No respiratory distress. Abdomen: Abdomen soft, hyperactive bowel sounds. General diffuse tenderness. Extremities: No edema noted. Able to move all extremities at will. Neurological: Awake, alert, and oriented. No focal motor deficits noted. Skin: Pale. Warm, dry and intact. LABORATORY DATA: WBCs 12.56, hemoglobin 7.5, hematocrit 26.8, platelet count 419,000. ANC 10.5, reticulocyte count 3.27. Potassium 3.3. Iron 11, iron percent saturation 6, ferritin 835. Vitamin B12 and folate are adequate. RADIOLOGY: Chest x-ray shows no specific findings. ASSESSMENT: 1. Multiple myeloma. Treatment with Velcade. 2. Small-bowel obstruction with intussusception. 3. Intractable nausea and vomiting. 4. Anemia PLAN: The patient is status post small-bowel resection for obstructing tumor and intussusception that was successful. The tumor was removed and we are waiting on pathology. Continue to treat the patient per medical and surgical management. We will evaluate labs and follow up with the patient. Transfuse for anemia as needed. Plan for a dose of IV iron. Dictated by DARLENE Tan for Rudy Cervantes MD cc: Rudy Cervantes MD [facility]
[2019-06-26] MEDS: NS + KCL 20 MEQ 1,000 ML IV SCH (13:08)
[2019-06-26] MEDS: CLINIMIX E 4.25%-5% SOLUTION 1,000 ML IV SCH (13:09)
--- NOTE | 2019-06-26 14:10 | PROGRESS NOTE ---
DATE: 06/26/2019 SUBJECTIVE: This patient seems to be doing better. She is status post exploratory laparotomy with small-bowel resection due to intussusception and small-bowel obstruction. During the procedure, a walnut size near-obstructing mass was identified and removed, pending pathology report. OBJECTIVE: Vital Signs: Temperature 98.4 degrees, pulse 99, respiratory rate 16, blood pressure 123/52, oxygen saturation 92 on room air. HEENT: Head normocephalic, no trauma. PERRLA. Neck: Supple. No JVD. No masses. Central trachea. Chest: Clear to auscultation. No wheezing. Some crepitus at the bases. Abdomen: Soft. Decreased bowel sounds. She has a midline incision without any signs of infection or bleeding at this moment. She is slightly distended, though. Extremities: No edema, no clubbing, no cyanosis. Neurological examination: The patient is completely alert. She is oriented x3. No focal deficits. LABORATORY: WBC 12.5, hemoglobin 7.5, hematocrit 26.8, platelets 419. Sodium 142, potassium 3.3, chloride 104, bicarbonate 24. BUN 13, creatinine 0.5, glucose 97, calcium 7.4. ASSESSMENT AND PLAN: 1. Small-bowel obstruction with intussusception, status post exploratory laparotomy with small- bowel resection, a walnut size near-obstructing mass was found and this is probably malignant. It has been resected. Surgery Department on board pending pathology report. She has a nasogastric tube placed, and I will continue with intravenous fluids with potassium and Clinimix. 2. Acute kidney injury, resolved. 3. Hypokalemia. I will add potassium to her fluids. 4. Hypothyroidism. Continue with intravenous levothyroxine. 5. History of gastroesophageal reflux disease. Continue with famotidine intravenous. 6. History of multiple myeloma and now possible malignant mass in the small bowel. Hematology/Oncology already evaluated this patient. 7. Nausea and vomiting, likely due to #1. 8. Dyslipidemia. We will continue with her treatment once she is tolerating oral. cc: Wily Granados MD
--- NOTE | 2019-06-26 14:28 | GENERAL SURGERY PROGRESS NOTE ---
DATE: 06/26/2019 SUBJECTIVE: Feels well, a little sore. No flatus. No fevers. Low-grade tachycardia. OBJECTIVE: Vital Signs: Blood pressure 117/55. Abdomen: Mildly distended, but soft. Dressing is intact. NG tube is in place with bilious output. LABS: White count 12, hematocrit 26, creatinine 0.5. ASSESSMENT AND PLAN: This is an 78-year-old female status post small-bowel resection for intussusception. She did okay. I have encouraged her to be out of bed and ambulating. We will remove her Higuera, keep her nasogastric tube until she has reliable return of bowel function. We will continue to follow along. cc: Cris Buenrostro MD
[2019-06-26] MEDS: SODIUM CHLORIDE 0.9% INJ SCH (23:21)
[2019-06-27] MEDS: ZOFRAN IV PRN ×3 (03:48→16:24)
[2019-06-27] MEDS: DILAUDID IV PRN ×3 (03:48→16:23)
[2019-06-27 06:36] LABS: BASO# 0.01 X1000 (0.0-0.2); BASO% 0.1 % (0.0-0.8); EOS# 0.29 X1000 (0.0-0.7); EOS% 2.8 % (0.0-10.0); HEMATOCRIT 24.1 % (37.0-47.0); IMM GRAN# 0.04 X1000 (0.0-0.04); IMM GRAN% 0.4 % (0.0-0.5); LYMPH# 1.24 X1000 (1.2-3.4); MCH 25.8 PG (27-31); MCV 88.9 FL (81-99); MONO# 0.93 X1000 (0.11-0.59); MPV 9.2 FL (7.4-10.4); NEUT# 7.79 X1000 (1.4-6.5); NEUT% 75.7 % (42.2-75.2); PLT 428 X1000 (130-400); RBC 2.71 XMIL (4.2-5.4); RDW 14.9 % (11.5-14.5)
[2019-06-27] MEDS: NS + KCL 20 MEQ 1,000 ML IV SCH (06:53)
[2019-06-27] MEDS: SYNTHROID IV SCH (06:53)
[2019-06-27] MEDS: SODIUM CHLORIDE 0.9% INJ PRN (06:54)
[2019-06-27 07:06] LABS: AGAP 9; BUN 13 mg/dL (8-22); CALCIUM 7.5 mg/dL (8.8-10.2); CHLORIDE 107 mmol/L (98-107); COSMO 281; CREATININE 0.4 mg/dL (0.5-0.9); ESTIMATED GFR > 60; GLUCOSE 119 mg/dL (70-104); POTASSIUM 3.6 mmol/L (3.5-5.1); SODIUM 140 mmol/L (136-145); TCO2 24 mmol/L (25-35)
[2019-06-27] MEDS: CLINIMIX E 4.25%-5% SOLUTION 1,000 ML IV SCH (10:10)
[2019-06-27] MEDS: LOVENOX SUBQ SCH (10:11)
[2019-06-27] MEDS: PERIDEX MT SCH ×2 (10:11→23:21)
[2019-06-27] MEDS ORDERED: NS 500 ML IV ONE (10:57)
[2019-06-27] MEDS: SODIUM CHLORIDE 0.9% INJ SCH ×2 (11:23→23:21)
[2019-06-27] MEDS: PEPCID IV SCH ×2 (11:23→23:20)
--- NOTE | 2019-06-27 13:52 | PROGRESS NOTE ---
DATE: 06/27/2019 ADDENDUM TO PROGRESS NOTE: Today, her hemoglobin is low at 7. Initially when she was admitted, the hemoglobin was 9.5, then decreased slowly to 8.6 and 7.5 and today 7. I will transfuse her with 1 unit of blood, and I will monitor. IMPRESSION: Anemia, normocytic, probably due to blood loss and chronic disease. She will receive 1 unit of blood. cc: Wily Granados MD
--- NOTE | 2019-06-27 14:03 | PROGRESS NOTE ---
DATE: 06/27/2019 SUBJECTIVE: This patient is lying comfortably in bed. Her abdomen is still distended and she is still not passing gas, decreased bowel sounds. She still has an NG tube. She is still NPO. I will continue with Clinimix. OBJECTIVE: Vital Signs: Temperature 98.7 degrees, pulse 94, respiratory rate 20, blood pressure 118/50, oxygen saturation 95% on 2 L of nasal cannula. HEENT: Head normocephalic, no trauma, PERRLA. Neck: Supple, no JVD. No masses. Central trachea. Chest: Clear to auscultation. No wheezing. Some crepitus at the bases. Abdomen: Soft, decreased bowel sounds, slight moderately distended. She has a midline incision without any signs of infection or bleeding. Extremities: Trace edema. No clubbing. No cyanosis. Neurological: The patient is alert. She is completely oriented. No focal deficits. LABORATORY: WBC 10.3, hemoglobin 7, hematocrit 24.1, platelet 424,000, sodium 140, potassium 3.6, chloride 107, bicarbonate 24, BUN 13, creatinine 0.4, glucose 119, calcium 7.5. ASSESSMENT AND PLAN: 1. Small bowel obstruction with intussusception, status post exploratory laparotomy with small- bowel resection, a walnut-sized near-obstructing mass was found and this is probably malignant, it has been resected. Surgery Department on board pending pathology report. She has an NG tube in place. She is still distended. We will continue with IV fluids with potassium and also Clinimix. 2. Acute kidney injury, resolved. 3. Hypokalemia, better. Continue with the same management. 4. Hypothyroidism, continue with intravenous levothyroxine until she is able to tolerate p.o. 5. History of GERD. Continue with the same management. 6. History of multiple myeloma and now possible malignant mass in the small bowel. Hematology/Oncology already evaluated this patient. 7. Nausea and vomiting, likely due to #1. 8. Dyslipidemia. We will continue with statins once she is tolerating p.o. cc: Wily Granados MD
--- NOTE | 2019-06-27 15:00 | GENERAL SURGERY PROGRESS NOTE ---
DATE: 06/27/2019 SUBJECTIVE: Doing okay. Minimal pain. No fevers. No tachycardia. Blood pressure 118/50. NG tube output remains bilious. She did have some nausea yesterday. Reviewed her labs. White count is normal. ASSESSMENT AND PLAN: This is an 78-year-old female, status post bowel resection for intussusception. Pathology is pending. She has not had return of bowel function yet. Will continue nasogastric tube decompression. I have encouraged her to be out of bed and ambulating. cc: Cris Buenrostro MD
[2019-06-28] MEDS: DILAUDID IV PRN ×3 (00:48→13:52)
[2019-06-28] MEDS: ZOFRAN IV PRN ×2 (00:48→05:56)
[2019-06-28] MEDS: SYNTHROID IV SCH ×2 (05:42→06:32)
[2019-06-28] MEDS: SODIUM CHLORIDE 0.9% INJ PRN (05:43)
[2019-06-28] MEDS: NS + KCL 20 MEQ 1,000 ML IV SCH (05:56)
[2019-06-28] MEDS: CLINIMIX E 4.25%-5% SOLUTION 1,000 ML IV SCH (05:56)
[2019-06-28 06:55] LABS: BASO# 0.01 X1000 (0.0-0.2); BASO% 0.1 % (0.0-0.8); EOS# 0.33 X1000 (0.0-0.7); EOS% 3.4 % (0.0-10.0); HEMATOCRIT 29.5 % (37.0-47.0); IMM GRAN# 0.11 X1000 (0.0-0.04); IMM GRAN% 1.1 % (0.0-0.5); LYMPH# 1.21 X1000 (1.2-3.4); LYMPH% 12.6 % (20.5-51.1); MCH 26.5 PG (27-31); MCHC 30.5 g/dL (33-37); MONO# 0.97 X1000 (0.11-0.59); MONO% 10.1 % (1.7-9.3); MPV 9.1 FL (7.4-10.4); NEUT# 6.98 X1000 (1.4-6.5); NEUT% 72.7 % (42.2-75.2); PLT 436 X1000 (130-400); RBC 3.39 XMIL (4.2-5.4); RDW 14.8 % (11.5-14.5); WBC 9.61 X1000 (4.8-10.8)
[2019-06-28 07:17] LABS: AGAP 8; ALKALINE PHOSPHATASE 73 U/L (32-104); BUN 10 mg/dL (8-22); CALCIUM 7.9 mg/dL (8.8-10.2); CHLORIDE 105 mmol/L (98-107); COSMO 272; CREATININE 0.4 mg/dL (0.5-0.9); ESTIMATED GFR > 60; GLUCOSE 110 mg/dL (70-104); GOT 18 U/L (10-30); GPT 7 U/L (10-36); MAGNESIUM 2.2 mg/dL (1.5-2.7); POTASSIUM 4.1 mmol/L (3.5-5.1); SODIUM 136 mmol/L (136-145); TCO2 23 mmol/L (25-35); TOTAL BILIRUBIN 0.28 mg/dL (0.20-1.00)
[2019-06-28] MEDS: PERIDEX MT SCH ×2 (08:49→22:12)
[2019-06-28] MEDS: LOVENOX SUBQ SCH (08:50)
[2019-06-28] MEDS ORDERED: VENOFER 300 MG in NS 250 ML IV ONE (09:00)
--- NOTE | 2019-06-28 11:08 | Diag Imaging Result Doc PS360 ---
CHEST-PORTABLE - 06/28/2019 INDICATION: dyspnea COMPARISON: 06/26/2019 FINDINGS: Stable nasogastric tube in good position in the stomach. There is been some decrease in the slight patchy linear atelectasis or infiltrate in the lateral left lung base. No new infiltrates. Heart size and pulmonary vascularity are normal. IMPRESSION: Improvement in the faint linear atelectasis or infiltrate in the left lung base. Electronically signed by Ben Jenkins 06/28/2019 11:05 AM
--- NOTE | 2019-06-28 11:09 | Diag Imaging Result Doc PS360 ---
ABDOMEN FLAT/UPRIGHT - 06/28/2019 INDICATION: pain COMPARISON: None FINDINGS: There is a nasogastric tube in good position in the stomach. No evidence of small bowel dilation. No significant constipation. No large amount of free air. IMPRESSION: No acute abnormality. Electronically signed by Ben Jenkins 06/28/2019 11:07 AM
--- NOTE | 2019-06-28 13:30 | HEMO/ONC PROGRESS NOTE ---
DATE: 06/28/2019 SUBJECTIVE: Ms. Pickering is asleep and appears comfortable this morning. She awakes easily to my voice. She states that she did have a bad night with lots of nausea. She states that the nausea seems to be worse at night. She is hoping to feel strong enough today to attempt to get up and sit in a chair. She is eager to have the NG tube removed. The NG tube appears to continue to suction green bile fluid. She states that her pain is at a minimum, and she feels fairly well this morning. OBJECTIVE: Vital Signs: Temperature 98.2 degrees, pulse rate 95, respiratory rate 16, blood pressure 134/52, O2 sat 95% on room air. She is in 0/10 pain. General: Elderly female in noacute distress. HEENT: Sclerae is anicteric. PERRLA. Oral mucosa is dry. Cardiovascular: Normal S1, S2. Heart rate and rhythm are regular. Respiratory: Chest is clear to auscultation. No respiratory distress. Abdomen: Soft. Slight diffuse tenderness. Extremities: No edema noted. Able to move all 4 extremities at will. Neurological: Awake, alert, and oriented x3. No focal motor deficits. Skin: Pale, warm, dry, and intact. No ecchymosis or petechiae noted. LABORATORY DATA: WBCs 9.61, hemoglobin 9.0, hematocrit 29.5, platelet count 436,000. ANC 6.98. Calcium 7.9. Bilirubin 0.28. RADIOLOGY: Chest x-ray: Improvement and faint linear atelectasis or infiltrates in the left lung base. Abdominal x-ray: No acute abnormality. No evidence of small bowel dilation. No large amount of free air. ASSESSMENT: 1. Multiple myeloma. Treatment with Velcade. 2. Small-bowel obstruction with intussusception. 3. Intractable nausea and vomiting, resolved. 4. Anemia. Treated with 1 unit of packed red blood cells and intravenous iron. PLAN: The patient is status post bowel resection for intussusception and obstructing tumor. She continues to recover as expected. We continue to wait on pathology. The patient's NG tube remains in place. She has not had return of bowel function yet. The patient was noted to be severely anemic. She has received 1 unit of packed red blood cells, and today she received IV iron. Continue to transfuse for anemia as needed. We will continue to follow. Dictated by DARLENE Tan for Rudy Cervantes MD cc: Rudy Cervantes MD [facility]
--- NOTE | 2019-06-28 17:22 | GENERAL SURGERY PROGRESS NOTE ---
DATE: 06/28/2019 SUBJECTIVE: The patient says she is feeling better but she has struggle with nausea through the weekend. She reports some flatus. OBJECTIVE: Vital signs: She is afebrile. Vital signs are stable. General: She is awake and alert and oriented x3. No acute distress. GI: Soft, nondistended. Appropriately tender. Incision is clean, dry, and intact. Her bowel sounds are quiet. NG tube has bilious fluid. The output appears to be about 300 mL over the last 8 hours. LABORATORY: White cell count 9.6, hemoglobin 9, hematocrit 29. Electrolytes reviewed and unremarkable. ASSESSMENT AND PLAN: An 78-year-old female status post small bowel resection for obstructing malignancy and intussusception. We are awaiting the final pathology. She continues to have nausea and decreased bowel function. We will clamp her NG tube today for 6 hours to assess readiness to remove it. She needs to remain n.p.o. for now. I have encouraged her to get out of bed with physical therapy which she has not done yet. cc: Karl Villegas MD
[2019-06-28] MEDS: PEPCID IV SCH (17:54)
[2019-06-28] MEDS: SODIUM CHLORIDE 0.9% INJ SCH (17:54)
--- NOTE | 2019-06-28 22:53 | PROGRESS NOTE ---
DATE: 06/28/2019 INTERVAL HISTORY: No acute events overnight. She has been passing gas. She states she was able to walk in the hallway with physical therapy. She denies any nausea. She is feeling much better. Her NG tube has been clamped. VITALS: Currently temperature 98.1 degrees, pulse 81, respiratory 18, blood pressure 120/50, saturating 96% on room air. PHYSICAL EXAMINATION: General: Does not appear in acute distress. HEENT: Oral cavity is moist. Respiratory: Air entry bilaterally equal. No wheeze, rhonchi, crackles. Cardiovascular: S1, S2 normal. No murmur, rub, or gallop. Abdomen: Soft. Midline laparotomy scar. Mildly tender. Active bowel sounds. Extremities: Mild lower extremity edema. She has not had a bowel movement. LABORATORY DATA: Suggestive of appropriate rise in hemoglobin after 1 unit of transfusion yesterday, normal platelet count. She does have normal electrolytes. Though urine culture is growing staphylococci epidermidis, she is denying any symptoms. IMAGING: Chest x-ray performed for dyspnea had improvement in faint linear atelectasis or infiltrate in the left lung base. Abdominal x-ray performed had no significant constipation or free air. ASSESSMENT AND PLAN: 1. Small bowel obstruction with intussusception, status post exploratory laparotomy, small-bowel resection and a walnut-sized near obstructing mass on 06/24/2019. Continue nasogastric tube clamped. The patient does have good return of bowel sounds. If she continues to pass gas, likely we can resume her on a clear liquid diet. I will appreciate surgical recommendation. Meanwhile, I will continue her intravenous fluids, intravenous Clinimix and intravenous opioids for pain medication. 2. History of multiple myeloma on Velcade and now tumor of small bowel with nodular lesions involving liver and spleen suspicious for malignancy. Hematology/Oncology has been on board. 3. Her acute kidney injury on presentation, hypokalemia have resolved; continue intravenous levothyroxine for hypothyroidism; intravenous famotidine for chronic gastrointestinal reflux disease; enoxaparin for deep venous thrombosis prophylaxis and Zofran as needed for nausea. She is status post iron sucrose for iron deficiency. DISPOSITION: I will continue to monitor patient inside the hospital. Plan of care discussed with her. Her questions have been answered. cc: Bebeto Dobson MD
[2019-06-29] MEDS: CLINIMIX E 4.25%-5% SOLUTION 1,000 ML IV SCH (01:54)
[2019-06-29] MEDS: NS + KCL 20 MEQ 1,000 ML IV SCH ×2 (01:54→15:10)
[2019-06-29] MEDS: DILAUDID IV PRN (01:55)
[2019-06-29] MEDS: PEPCID IV SCH ×2 (05:29→17:03)
[2019-06-29] MEDS: SYNTHROID IV SCH ×2 (05:29→06:27)
[2019-06-29] MEDS: LOVENOX SUBQ SCH (08:44)
[2019-06-29] MEDS: PERIDEX MT SCH ×2 (08:44→21:03)
--- NOTE | 2019-06-29 13:29 | GENERAL SURGERY PROGRESS NOTE ---
DATE: 06/29/2019 SUBJECTIVE: The patient feels better. She denies nausea or vomiting. She has passed gas and had a small bowel movement. Her NG tube was removed last night. OBJECTIVE: She is afebrile. Vital signs are stable.General: She is awake, alert, oriented x3. No acute distress. Gastrointestinal: Soft, nondistended, appropriately tender. Incisional dressing is clean and dry. She does have bowel sounds. LABORATORY: None today. ASSESSMENT AND PLAN: An 78-year-old female status post small bowel resection for obstructing mass with intussusception. She seems to be improving. We will start her on a clear liquid diet today. We await the pathology report. cc: Karl Villegas MD
--- NOTE | 2019-06-29 15:02 | PROGRESS NOTE ---
DATE: 06/29/2019 INTERVAL HISTORY: She has been having good bowel sounds and had a small bowel movement, and she was started on clear liquid diet. The small-bowel biopsy report is pending. SUBJECTIVE: She says she was able to drink soup. However, after that, she started feeling a little nauseous. She wanted me to order something for the sleep, as well as she wanted me to discontinue the fingersticks. Her is at bedside. OBJECTIVE: Current Vital Signs: Temperature 98.4 degrees, pulse 94, respiratory rate 18, blood pressure 127/71, she is saturating 98% on room air. General: Does not appear in any acute distress. HEENT: Oral cavity is moist. Lungs: Air entry bilaterally equal. No wheeze or rhonchi. She had inspiratory crackles in bilateral infrascapular region. HEENT: S1, S2 normal. Not tachycardic. No murmur, rub, or gallop. Abdomen: Soft. Midline scar of laparotomy, not soaked. Active bowel sounds. Mild generalized tenderness. Extremities: Mild lower extremity edema. Input and output suggests that there is no documented bowel movement, though she says that she had a small bowel movement earlier in the morning. LABORATORY DATA: No CBC or BMP today. MICROBIOLOGY: No significant microbiology. She does have asymptomatic bacteriuria. IMAGING: No new imaging today. ASSESSMENT AND PLAN: 1. Small-bowel obstruction with intussusception, status post exploratory laparotomy and removal of walnut-sized near-obstructing mass on 06/24/2019 from small-bowel resection. Continue clear liquid diet as per surgical team recommendation. Her nasogastric tube was discontinued. I will keep her on intravenous fluids and intravenous Clinimix, as well as intravenous opioids for pain management. 2. History of multiple myeloma, on Velcade, and now tumor of small bowel with nodular lesions involving liver and spleen, suspicious for malignancy. Hematology/Oncology on board. 3. Iron-deficiency anemia. Currently, she is status post 1 unit of blood transfusion and iron sucrose complex 300 mg, which she tolerated well. 4. Her acute kidney injury on presentation and hypokalemia have resolved. I will change her levothyroxine to oral. I will continue antacid medications for prophylaxis, and enoxaparin for deep venous thrombosis prophylaxis, as well as Zofran as needed for nausea. 5. Disposition. I will continue to monitor the patient inside the hospital. Plan of care discussed with the patient and her at bedside. Their questions have been answered. cc: Bebeto Dobson MD
[2019-06-29] MEDS: SODIUM CHLORIDE 0.9% INJ SCH (17:03)
[2019-06-29] MEDS ORDERED: DESYREL PO SCH (21:00)
[2019-06-29] MEDS ORDERED: MELATONIN PO SCH (21:00)
[2019-06-30] MEDS: DILAUDID IV PRN (01:23)
[2019-06-30] MEDS: ZOFRAN IV PRN (01:24)
[2019-06-30 08:44] LABS: AGAP 10; BUN 10 mg/dL (8-22); CALCIUM 8.4 mg/dL (8.8-10.2); CHLORIDE 109 mmol/L (98-107); COSMO 278; CREATININE 0.4 mg/dL (0.5-0.9); ESTIMATED GFR > 60; GLUCOSE 116 mg/dL (70-104); PHOSPHORUS 1.3 mg/dL (2.7-4.5); POTASSIUM 4.3 mmol/L (3.5-5.1); SODIUM 139 mmol/L (136-145); TCO2 20 mmol/L (25-35)
[2019-06-30 09:01] LABS: BASO# 0.03 X1000 (0.0-0.2); BASO% 0.3 % (0.0-0.8); EOS# 0.41 X1000 (0.0-0.7); EOS% 3.8 % (0.0-10.0); HEMOGLOBIN 9.7 g/dL (12.0-16.0); IMM GRAN# 0.61 X1000 (0.0-0.04); IMM GRAN% 5.6 % (0.0-0.5); LYMPH# 1.71 X1000 (1.2-3.4); LYMPH% 15.8 % (20.5-51.1); MCH 26.2 PG (27-31); MCHC 30.3 g/dL (33-37); MCV 86.5 FL (81-99); MONO# 1.28 X1000 (0.11-0.59); MONO% 11.9 % (1.7-9.3); MPV 8.8 FL (7.4-10.4); NEUT# 6.76 X1000 (1.4-6.5); NEUT% 62.6 % (42.2-75.2); PLT 501 X1000 (130-400); RDW 15.4 % (11.5-14.5)
[2019-06-30 09:09] LABS: BANDS 6 % (0-1); EOS 2 % (1-10); LYMPHS 18 % (21-51); MONO 6 % (1-9); SEGS 64 % (42-75)
[2019-06-30 09:15] LABS: FREE T4 1.26 ng/dL (0.93-1.70)
[2019-06-30] MEDS: PERIDEX MT SCH (09:18)
[2019-06-30] MEDS: LOVENOX SUBQ SCH (09:18)
[2019-06-30 09:36] LABS: TSH 7.95 uIUmL (0.27-4.20)
--- NOTE | 2019-06-30 14:19 | GENERAL SURGERY PROGRESS NOTE ---
DATE: 06/30/2019 SUBJECTIVE: The patient complains of diarrhea overnight, but otherwise is doing okay. She is tolerating her liquid diet. No nausea or vomiting and generally feels better overall. OBJECTIVE: She is afebrile. Pulse is in the 90s to low 100s, blood pressure 110/60, O2 saturation 96%. Urine output 1950 mL yesterday.General: She is awake, alert, oriented x3. No acute distress. Gastrointestinal: Soft, nondistended, appropriately tender. Incision is clean, dry, and intact. She has good bowel sounds. LABORATORY: CBC and metabolic profile reviewed and unremarkable. 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 ASSESSMENT AND PLAN: An 78-year-old female status post small bowel resection for obstructing mass. 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 She is recovering well from surgery so far. We will advance her to a GI soft diet. She will need to follow up with Dr. Cervantes postoperatively for ongoing multiple myeloma treatment. cc: Karl Villegas MD
[2019-06-30] MEDS: CLINIMIX E 4.25%-5% SOLUTION 1,000 ML IV SCH ×2 (14:55→14:56)
[2019-06-30] MEDS: NS + KCL 20 MEQ 1,000 ML IV SCH (14:58)
[2019-06-30 16:19] VITALS: BP 125/45
[2019-06-30] MEDS ORDERED: CALMOSEPTINE OINTMENT TOP PRN (16:36)
[2019-06-30] MEDS: SODIUM CHLORIDE 0.9% INJ SCH (17:00)
[2019-06-30] MEDS: PEPCID IV SCH (17:02)
[2019-06-30] MEDS ORDERED: ULTRAM PO PRN (17:06)
--- NOTE | 2019-07-01 11:49 | DISCHARGE SUMMARY ---
ADMISSION DATE: 06/24/2019 DISCHARGE DATE: 06/30/2019 DISCHARGE DISPOSITION: Home with family. Home care agency to see the patient. DISCHARGE CONDITION: Hemodynamically stable. She is able to tolerate soft diet without any nausea or vomiting. She has had multiple bowel movements overnight. She is denying undue pain. She is not needing IV pain medications in the last 12 hours. The small-bowel resection biopsy turned out to be plasmacytoma. DISCHARGE DIAGNOSES: 1. Small-bowel obstruction with intussusception due to near-obstructing small- bowel mass. 2. Solid hepatic and splenic nodules suspicious of malignancy. 3. Iron-deficiency anemia. 4. Acute kidney injury. 5. Hypokalemia. PAST MEDICAL HISTORY: 1. History of multiple myeloma, on Velcade. 2. Hyperlipidemia. 3. Chronic gastroesophageal reflux disease. 4. Chronic pain. 5. Hypothyroidism. 6. History of glaucoma. 7. History of total knee replacement. DISCHARGE MEDICATIONS: Tramadol 25 mg every 6 hours as needed for pain, 10 tablets have been prescribed. The other medication were not reconciled, but she was taking Velcade. PHYSICAL EXAMINATION: Current Vital Signs: Temperature 98.3 degrees, pulse 103, respiratory rate 20, blood pressure 125/45, saturating 98% on room air. General: The patient did not have any acute distress. HEENT: Oral cavity is moist. Lungs: Air entry bilaterally equal. No wheeze, rhonchi, crackles. Cardiovascular: S1, S2 normal. No murmur or gallop. Abdomen: Soft. Midline laparotomy scar with rj on. There were some blood clots, dried, with no active bleeding. I discussed with the nurse about changing the dressing before discharge. Active bowel sounds. Extremities: She has mild bilateral lower extremity edema. Neurologic: She was alert and oriented x3. SIGNIFICANT LABORATORY DATA DURING HOSPITAL ADMISSION AND DISCHARGE: WBC 10.8, hemoglobin 9.7, platelets 501,000. BUN of 10, creatinine 0.8. On admission, she did have a BUN of 19 and creatinine of 1.2. SIGNIFICANT MICROBIOLOGY DURING HOSPITAL ADMISSION: Urine had staphylococci epidermidis, but she was asymptomatic. She received 1 unit of blood transfusion for acute blood loss anemia during hospital admission, after which she had stable hemoglobin. SIGNIFICANT IMAGING DURING HOSPITAL ADMISSION: Abdomen and pelvis CT on admission had small solid hepatic nodule, and two large solid splenic nodules. Metastasis cannot be excluded. Small-bowel obstruction with intussusception at the midline lower abdomen, possible smooth margined tissue mass at the intussusception location. Chest x-ray had nonspecific findings. Chest x-ray on 06/28/2019 had improvement in the atelectasis or infiltrate in the left lung base. HOSPITAL COURSE SUMMARY: Ms. Pickering is an 78-year-old lady with past medical history of multiple myeloma, cholecystectomy, several orthopedic surgeries, who was seeing Dr. Cervantes outpatient, came in with chief complaint of abdominal pain for a few days, which got worse on the day of presentation. On presentation, the CT scan of the abdomen and pelvis had suggested small solid hepatic and two large splenic nodules with small-bowel obstruction, likely from intussusception. She was admitted for further management. Surgical team was consulted. The patient underwent exploratory laparotomy with small-bowel resection by Dr. Villegas on 06/24/2019, which she tolerated well. Her postoperative course was marked by presence of postoperative ileus and nausea, for which she required nasogastric tube and/or suction. Later on, NG tube was able to be removed, and the patient was started on diet, which she tolerated well. At the time of discharge, she is tolerating softer diet without any nausea or vomiting, and she has had multiple bowel movements. She was advised to follow up with Dr. Villegas and Dr. Cervantes outpatient within 7 days. PROCEDURES DURING HOSPITALIZATION: Exploratory laparotomy with removal of small-bowel mass and small-bowel resection. TIME SPENT: More than 30 minutes were spent discharging this patient. cc: Bebeto Dobson MD [facility]
== END 2019-06-30 19:33 | disposition home health service (06) | DRG 821 ==
LOC: ED 07:41 → P.ED 07:41 → SUATTDRO 14:05 → 3N 14:05 → 4N 18:24
PROVIDERS: ATTEND Internal Medicine